=== PATIENT | female | born 1945 | race Caucasian/White ===

== ENCOUNTER 2023-08-31 14:23 | Emergency (ER) | payer OTHER ==
[~2023-08-31] VITALS: Ht 170.2 cm; Wt 86.2 kg
[2023-08-31 15:03] VITALS: BP_SYST 168; PULSE 83; RESP 20; TEMP 98.6; O2SAT 96
[2023-08-31] MEDS ORDERED: HYDROcodone/ACETAMIN 10-325 MG TAB PO ONE (18:00)
[2023-08-31] MEDS: MORPHINE 4 MG INJ. 4 MG/ML VIAL IM ONE (18:10)
[2023-08-31] MEDS: ONDANSETRON 4 MG ODT TAB PO ONE (18:10)
[2023-08-31] MEDS: IBUPROFEN 800 MG TABLET PO ONE (18:10)
[2023-08-31] MEDS ORDERED: IBUP-1971 PO (18:35)
[2023-08-31] MEDS ORDERED: HYDR-3921 PO (18:35)
[2023-08-31 18:52] VITALS: BP_SYST 152; PULSE 68; RESP 21; TEMP 97.7; O2SAT 96
== END 2023-08-31 18:52 | disposition home or self-care (01) ==
LOC: SED 14:23
DX: S52.591A Other fractures of lower end of right radius, initial encounter for closed fracture (principal); S52.611A Displaced fracture of right ulna styloid process, initial encounter for closed fracture; I10 Essential (primary) hypertension; E78.5 Hyperlipidemia, unspecified; W18.39XA Other fall on same level, initial encounter; Y93.89 Activity, other specified; Y92.89 Other specified places as the place of occurrence of the external cause; Y99.8 Other external cause status
CPT/HCPCS: 99283; 73110; 96372; 29125; Q0162; J2270